=== PATIENT | male | born 1935 | race Two or more races ===

== ENCOUNTER 2018-04-23 07:16 | Day surgery (SDC) | payer OTHER, MEDICARE ==
[~2018-04-23] VITALS: Ht 175.3 cm; Wt 117.9 kg
[~2018-04-23 07:16] MED LIST: ANDROGEL75 GM TD; ASMANEX TW200 MICRO1 IH; ASPIR 8181 M1 PO; COREG6.25 M1 PO; CRESTOR10 MG PO; FLOMAX0.4 MG PO; GLUCOPHAGE500 MG PO; LASIX40 MG PO; MULTIVITAMIN1 EAC2 PO; NEURONTIN300 MG PO; PROSCAR5 MG PO; PROTONIX40 MG PO; SINGULAIR10 MG PO; ULTRAM50 MG PO; VENLAFAXINE HC150 M1 PO
[2018-04-23 09:03] VITALS: BP 136/69
[2018-04-23 12:05] VITALS: BP 116/59
[2018-04-23 13:04] VITALS: BP 140/71
== END 2018-04-23 13:11 | disposition home or self-care (01) ==
LOC: SDC 07:16
PROVIDERS: Ophthalmology
DX: H35.341 Macular cyst, hole, or pseudohole, right eye (principal); E11.9 Type 2 diabetes mellitus without complications; I48.2 Chronic atrial fibrillation; G47.33 Obstructive sleep apnea (adult) (pediatric); D50.9 Iron deficiency anemia, unspecified; Z79.82 Long term (current) use of aspirin
CPT/HCPCS: 82948; J0690; J0713; J2250; J2405; J3300